=== PATIENT | female | born 1955 | race African-American/Black ===

== ENCOUNTER 2022-04-05 17:35 | Inpatient (IN) | payer OTHER ==
[2022-04-05 19:51] VITALS: BMI 26.2
[2022-04-05] MEDS ORDERED: MAG HYDROX/AL HYDROX/SIMETH 30 ML UNIT-DOSE CUP PO PRN (20:59)
[2022-04-05] MEDS ORDERED: MAGNESIUM HYDROX 2400MG/30ML ORAL SUSPENSION 30 ML CUP PO PRN (20:59)
[2022-04-05] MEDS ORDERED: MAGNESIUM CITRATE 300 ML BOTTLE PO PRN (20:59)
[2022-04-05] MEDS ORDERED: IBUPROFEN 400 MG TABLET (FP) PO PRN (20:59)
[2022-04-05] MEDS ORDERED: BISMUTH SUBSALICYLATE 524 MG/30 ML PO PRN (20:59)
[2022-04-05] MEDS ORDERED: BENZOCAINE/MENTHOL (CHLORASEPTIC ) LOZENGE MM PRN (20:59)
[2022-04-05] MEDS ORDERED: ONDANSETRON *ODT* 4 MG TABLET SL PRN (20:59)
[2022-04-05] MEDS ORDERED: ACETAMINOPHEN 325 MG TABLET (FP) PO PRN ×2 (20:59)
[2022-04-05] MEDS ORDERED: DICYCLOMINE HCL 10 MG CAPSULE PO PRN (20:59)
[2022-04-05] MEDS ORDERED: LOPERAMIDE HCL 2 MG CAPSULE PO PRN (20:59)
[2022-04-05] MEDS ORDERED: chlordiazePOXIDE HCL 25 MG CAPSULE PO PRN (21:04)
[2022-04-06] MEDS: METHOCARBAMOL 500 MG TABLET PO PRN ×2 (00:45→21:43)
[2022-04-06] MEDS: THIAMINE HCL 100 MG TABLET (FP) PO SCH ×2 (00:46→22:13)
[2022-04-06] MEDS: IBUPROFEN 600 MG TABLET (FP) PO PRN ×2 (00:46→22:15)
[2022-04-06] MEDS: chlordiazePOXIDE HCL 25 MG CAPSULE PO SCH ×5 (00:48→22:14)
[2022-04-06] MEDS: MELATONIN 5 MG TABLETS PO SCH ×2 (00:52→22:13)
[2022-04-06] MEDS ORDERED: cloNIDine HCL 0.1 MG TABLET PO ONE (06:41)
[2022-04-06] MEDS: PRENATAL VITAMINS W/ FOLIC ACID TABLET (FP) PO SCH (10:27)
[2022-04-06] MEDS ORDERED: ALBUTEROL SO4 HFA INHALER IH SCH (11:00)
[2022-04-06 11:11] LABS: CALCIUM 9.1 mg/dL (8.5-10.1)
[2022-04-06 11:12] LABS: BLOOD UREA NITROGEN 5.3 mg/dL (7-18)
[2022-04-06 11:15] LABS: CREATININE 0.7 mg/dL (0.55-1.3)
[2022-04-06 11:16] LABS: TOT PROT 7.6 g/dl (6.4-8.2)
[2022-04-06 11:18] LABS: BILIRUBIN,TOTAL 0.3 mg/dL (0.2-1)
[2022-04-06 11:28] LABS: HEMATOCRIT 34.7 % (32.4-45.2); HEMOGLOBIN 11.3 GM/dL (10.7-15.3); MCH 32.9 pg (25.7-33.7); MCHC 32.5 g/dl (32.0-36.0); MEAN CELL VOLUME 101.2 fl (80-96); MEAN PLT VOLUME 7.6 fl (7.5-11.1); PLATELET COUNT 211 10^3/uL (134-434); RBC 3.43 M/mm3 (3.60-5.2); RDW 14.7 % (11.6-15.6); WHITE BLOOD COUNT 4.7 K/mm3 (4.0-10.0)
[2022-04-06] MEDS: FERROUS SO4 325 MG TABLET (FP) PO SCH ×2 (12:01→22:13)
[2022-04-06] MEDS ORDERED: ALBUTEROL SO4 HFA INHALER IH PRN (14:47)
[2022-04-06] MEDS: hydrALAZINE HCL 25 MG TABLET (FP) PO SCH (22:13)
[2022-04-06] MEDS: CARVEDILOL 12.5 MG TABLET (FP) PO SCH (22:13)
[2022-04-06] MEDS: hydrOXYzine PAMOATE 25 MG CAPSULE (FP) PO PRN (22:16)
[2022-04-07] MEDS: hydrOXYzine PAMOATE 25 MG CAPSULE (FP) PO PRN ×2 (05:24→22:04)
[2022-04-07] MEDS: chlordiazePOXIDE HCL 25 MG CAPSULE PO SCH ×4 (05:24→22:04)
[2022-04-07] MEDS: CARVEDILOL 12.5 MG TABLET (FP) PO SCH ×2 (10:07→22:03)
[2022-04-07] MEDS: FERROUS SO4 325 MG TABLET (FP) PO SCH ×2 (10:07→22:03)
[2022-04-07] MEDS: PRENATAL VITAMINS W/ FOLIC ACID TABLET (FP) PO SCH (10:07)
[2022-04-07] MEDS: hydrALAZINE HCL 25 MG TABLET (FP) PO SCH ×2 (10:07→22:03)
[2022-04-07] MEDS: amLODIPine BESYLATE 10 MG TABLET (FP) PO SCH (10:07)
[2022-04-07] MEDS: THIAMINE HCL 100 MG TABLET (FP) PO SCH (22:03)
[2022-04-07] MEDS: MELATONIN 5 MG TABLETS PO SCH (22:03)
[2022-04-07] MEDS: IBUPROFEN 600 MG TABLET (FP) PO PRN (22:05)
[2022-04-08] MEDS ORDERED: chlordiazePOXIDE HCL 10 MG CAPSULE PO PRN
[2022-04-08] MEDS: chlordiazePOXIDE HCL 10 MG CAPSULE PO SCH ×4 (05:54→22:34)
[2022-04-08] MEDS: hydrALAZINE HCL 25 MG TABLET (FP) PO SCH ×2 (10:10→22:33)
[2022-04-08] MEDS: amLODIPine BESYLATE 10 MG TABLET (FP) PO SCH (10:10)
[2022-04-08] MEDS: CARVEDILOL 12.5 MG TABLET (FP) PO SCH ×2 (10:10→22:33)
[2022-04-08] MEDS: PRENATAL VITAMINS W/ FOLIC ACID TABLET (FP) PO SCH (10:10)
[2022-04-08] MEDS: FERROUS SO4 325 MG TABLET (FP) PO SCH ×2 (10:10→22:33)
[2022-04-08] MEDS: IBUPROFEN 600 MG TABLET (FP) PO PRN (10:12)
[2022-04-08] MEDS: MELATONIN 5 MG TABLETS PO SCH (22:33)
[2022-04-08] MEDS: THIAMINE HCL 100 MG TABLET (FP) PO SCH (22:34)
[2022-04-09] MEDS ORDERED: chlordiazePOXIDE HCL 10 MG CAPSULE PO SCH (05:00)
[2022-04-09] MEDS: hydrOXYzine PAMOATE 25 MG CAPSULE (FP) PO PRN (06:33)
[2022-04-09] MEDS: FERROUS SO4 325 MG TABLET (FP) PO SCH (09:51)
[2022-04-09] MEDS: amLODIPine BESYLATE 10 MG TABLET (FP) PO SCH (09:51)
[2022-04-09] MEDS: CARVEDILOL 12.5 MG TABLET (FP) PO SCH (09:51)
[2022-04-09] MEDS: hydrALAZINE HCL 25 MG TABLET (FP) PO SCH (09:51)
[2022-04-09] MEDS: PRENATAL VITAMINS W/ FOLIC ACID TABLET (FP) PO SCH (09:52)
[2022-04-09 10:19] VITALS: BP 157/90; PULSE 79; RESP 19; TEMP 98.1
[2022-04-10] MEDS ORDERED: chlordiazePOXIDE HCL 10 MG CAPSULE PO ONE (05:00)
== END 2022-04-09 12:15 | disposition home or self-care (01) | DRG 897 ==
LOC: YASAS 17:35 → Y3N 23:48
PROVIDERS: ADMIT Allergy & Immunology; ATTEND Surgery
PROC: HZ2ZZZZ Detoxification Services for Substance Abuse Treatment (ICD-10-PCS; principal; 2022-04-05)
DX: F10.230 Alcohol dependence with withdrawal, uncomplicated (principal); F43.10 Post-traumatic stress disorder, unspecified; F41.9 Anxiety disorder, unspecified; F32.A Depression, unspecified; G47.30 Sleep apnea, unspecified; I10 Essential (primary) hypertension; J45.20 Mild intermittent asthma, uncomplicated; M54.30 Sciatica, unspecified side; Z96.653 Presence of artificial knee joint, bilateral; Z88.1 Allergy status to other antibiotic agents; Z91.013 Allergy to seafood
CPT/HCPCS: 36415; 80053; 85027; 86780; 93005; 93010; C9803-CS; J0735; U0003; U0005

== ENCOUNTER 2023-11-07 14:06 | Inpatient (IN) | payer OTHER ==
[2023-11-07 14:47] VITALS: BMI 26.4
[2023-11-07] MEDS ORDERED: LOPERAMIDE HCL 2 MG CAPSULE PO PRN (17:59)
[2023-11-07] MEDS ORDERED: BISMUTH SUBSALICYLATE 524 MG/30 ML PO PRN (17:59)
[2023-11-07] MEDS ORDERED: guaiFENesin 600 MG TABLET.ER (FP) PO PRN (17:59)
[2023-11-07] MEDS ORDERED: IBUPROFEN 400 MG TABLET (FP) PO PRN (17:59)
[2023-11-07] MEDS ORDERED: POLYETHYLENE GLYCOL (HEALTHYLAX) 3350 17 GM PACKET PO PRN (17:59)
[2023-11-07] MEDS ORDERED: BENZOCAINE/MENTHOL (CHLORASEPTIC ) LOZENGE MM PRN (17:59)
[2023-11-07] MEDS ORDERED: ONDANSETRON *ODT* 4 MG TABLET SL PRN (17:59)
[2023-11-07] MEDS ORDERED: MAG HYDROX/AL HYDROX/SIMETH 30 ML UNIT-DOSE CUP PO PRN (17:59)
[2023-11-07] MEDS ORDERED: NALOXONE HCL (KLOXXADO) 8 MG SPRAY NS PRN (17:59)
[2023-11-07] MEDS ORDERED: BENZONATATE 200 MG CAPSULE PO PRN (17:59)
[2023-11-07] MEDS ORDERED: MAGNESIUM HYDROX 2400MG/30ML ORAL SUSPENSION 30 ML CUP PO PRN (17:59)
[2023-11-07] MEDS ORDERED: NALOXONE HCL 0.4 MG/ML VIAL IM PRN (17:59)
[2023-11-07] MEDS ORDERED: cloNIDine HCL 0.1 MG TABLET ONE (19:08)
[2023-11-07] MEDS: cloNIDine HCL 0.1 MG TABLET PO ONE (19:14)
[2023-11-07] MEDS: MELATONIN 5 MG TABLETS PO SCH (22:22)
[2023-11-07] MEDS: THIAMINE HCL 100 MG TABLET (FP) PO SCH (22:22)
[2023-11-07] MEDS: IBUPROFEN 600 MG TABLET (FP) PO PRN (22:23)
[2023-11-08] MEDS: ACETAMINOPHEN 325 MG TABLET (FP) PO PRN (03:37)
[2023-11-08] MEDS: amLODIPine BESYLATE 10 MG TABLET (FP) PO SCH (06:31)
[2023-11-08] MEDS: ALBUTEROL SO4 HFA INHALER IH SCH (06:36)
[2023-11-08] MEDS: PRENATAL VITAMINS W/ FOLIC ACID TABLET (FP) PO SCH (10:16)
[2023-11-08] MEDS: LORazepam 1 MG TABLET PO SCH (10:17)
[2023-11-08] MEDS: hydrALAZINE HCL 25 MG TABLET (FP) PO SCH (10:17)
[2023-11-08] MEDS: CARVEDILOL 12.5 MG TABLET (FP) PO SCH (10:36)
[2023-11-08] MEDS ORDERED: LORazepam 2 MG TABLET PO SCH (11:00)
[2023-11-08 11:56] LABS: HEMATOCRIT 36.3 % (32.4-45.2); HEMOGLOBIN 12.2 GM/dL (10.7-15.3); MCH 32.5 pg (25.7-33.7); MCHC 33.5 g/dl (32.0-36.0); PLATELET COUNT 383 10^3/uL (134-434); RBC 3.74 M/mm3 (3.60-5.2); RDW 13.7 % (11.6-15.6); WHITE BLOOD COUNT 7.3 K/mm3 (4.0-10.0)
[2023-11-08 12:07] LABS: CHLORIDE 104 mmol/L (98-107); POTASSIUM 4.9 mmol/L (3.5-5.1); SODIUM 137 mmol/L (136-145)
[2023-11-08 12:11] LABS: CALCIUM 9.3 mg/dL (8.5-10.1)
[2023-11-08 12:12] LABS: ALBUMIN 3.6 g/dl (3.4-5.0); ANION GAP 8 mmol/L (4-13); BLOOD UREA NITROGEN 17.4 mg/dL (7-18); CO2 25 mmol/L (21-32); GLUCOSE,RANDOM 108 mg/dL (74-106)
[2023-11-08 12:15] LABS: SGOT/AST 31 U/L (15-37); SGPT/ALT 24 U/L (13-61)
[2023-11-08 12:16] LABS: BILIRUBIN,TOTAL 0.8 mg/dL (0.2-1); TOT PROT 8.9 g/dl (6.4-8.2)
[2023-11-08 12:17] LABS: ALK PHOS 139 U/L (45-117)
[2023-11-08] MEDS: SUVOREXANT 10 MG TABLET PO PRN (22:35)
[2023-11-09] MEDS: LORazepam 1 MG TABLET PO SCH (05:24)
[2023-11-09] MEDS: LORazepam 1 MG TABLET PO PRN (19:52)
[2023-11-09] MEDS: CLOTRIMAZOLE 1% VAGINAL CREAM WITH APPLICATOR 45 GM TUBE VG SCH (22:27)
[2023-11-10] MEDS ORDERED: LORazepam 0.5 MG TABLET PO PRN
[2023-11-10] MEDS: LORazepam 0.5 MG TABLET PO SCH (05:16)
[2023-11-10 10:31] VITALS: BP 140/80; PULSE 81; RESP 18; TEMP 97.3
[2023-11-11] MEDS ORDERED: LORazepam 0.5 MG TABLET PO ONE (05:00)
== END 2023-11-10 09:45 | disposition home or self-care (01) | DRG 897 ==
LOC: YASAS 14:06 → Y6N 18:32
PROVIDERS: ADMIT Allergy & Immunology; ATTEND Surgery
PROC: HZ2ZZZZ Detoxification Services for Substance Abuse Treatment (ICD-10-PCS; principal; 2023-11-07)
DX: F10.230 Alcohol dependence with withdrawal, uncomplicated (principal); F10.282 Alcohol dependence with alcohol-induced sleep disorder; F10.280 Alcohol dependence with alcohol-induced anxiety disorder; F10.24 Alcohol dependence with alcohol-induced mood disorder; F41.9 Anxiety disorder, unspecified; F32.A Depression, unspecified; F43.10 Post-traumatic stress disorder, unspecified; I10 Essential (primary) hypertension; J45.20 Mild intermittent asthma, uncomplicated; G47.30 Sleep apnea, unspecified; Z62.810 Personal history of physical and sexual abuse in childhood; Z63.8 Other specified problems related to primary support group; Z63.0 Problems in relationship with spouse or partner; Z88.1 Allergy status to other antibiotic agents
CPT/HCPCS: 36415; 80053; 80307; 85027; 86780; 93005; 93010